=== PATIENT | male | born 1980 | race African-American/Black ===

== ENCOUNTER 2016-06-04 00:43 | Emergency (ER) | payer OTHER ==
[~2016-06-04] VITALS: Ht 190.5 cm; Wt 106.6 kg
[~2016-06-04 00:43] MED LIST: AMOXICILLIN500 MG PO; BACTRIM DS 8001 TAB PO; ECOTRIN81 MG PO
[2016-06-04 01:17] VITALS: BP 126/76
--- NOTE | 2016-06-04 01:26 | ED HAND/WRIST INJURY COMPLAINT ---
History of Present Illness General Chief Complaint: Hand or Wrist Injury Stated Complaint: LEFT QWRIST PAIN Source: patient, old records Exam Limitations: no limitations Vital Signs & Intake/Output Vital Signs & Intake/Output Vital Signs Date Time Temp Pulse Resp B/P B/P Pulse O2 O2 Flow FiO2 Mean Ox Delivery Rate 06/04 0117 98.6 89 18 126/76 98 Room Air Allergies Coded Allergies: MDX - No Known Drug Allergies - Nkd (NO KNOWN DRUG ALLERGIES - NKDA) (09/19/12) Reconcile Medications Amoxicillin 500 MG CAPSULE 1 TAB PO TID INFECTION Aspirin (Ecotrin) 81 MG ECT 1 TAB PO PRN HEADACHE (Reported) Sulfamethoxazole/Trimethopri (Bactrim Ds 800 MG-160 MG) 1 TAB TAB 1 TAB PO BID INFECTION Triage Note: PT TO ED C/O LEFT WRIST PAIN. STATES NOTICED BUMP ON LEFT WRIST A COUPLE OF WEEKS AGO. DENIES INJURY Triage Nurses Notes Reviewed? yes Occurred: x weeks Duration: week(s):, intermittent, waxing and waning Timing: recent history Injury Environment: home Severity: mild Severity Numbers: 2 Pain/Injury Location: Left: Wrist. Context: unknown Method of Injury: unknown No Modifying Factors: none Associated Symptoms: swelling HPI: 36-year-old male presents emergency room complaining of mild aching nonradiating pain to the left wrist has been going on for the past several weeks. States he' s had intermittent swelling over the wrist for a couple weeks. Denies known injury or trauma is not sought care until tonight for the symptoms. No numbness or tingling. No hand or finger pain he denies any form injury. Has not taken anything for symptoms or modifying factors or associated symptoms otherwise. (EARL NIELSEN) Past History Travel History Traveled to [place] past 21 day No Medical History Any Pertinent Medical History? none Neurological: NONE EENT: NONE Cardiovascular: NONE Respiratory: NONE Gastrointestinal: NONE Hepatic: NONE Renal: NONE Musculoskeletal: NONE Psychiatric: NONE Endocrine: NONE Blood Disorders: NONE Cancer(s): NONE Surgical History Surgical History: N Psychosocial History What is your primary language Uzbek Tobacco Use: Never used ETOH Use: denies use Illicit Drug Use: denies illicit drug use Family History Hx Contributory? No (EARL NIELSEN) Review of Systems Review of Systems Constitutional: Reports: see HPI. All Other Systems: Reviewed and Negative Comments Review of systems: See HPI, All other systems negative. Constitutional, no chills no fever, no malaise no weight loss HEENT: No visual changes no sore throat no congestion, no ear pain Cardiovascular: No chest pain , no palpitation Skin: no rashes, no change in skin Respiratory: No dyspnea no cough no sputum GI: No nausea no vomiting, no diarrhea, no bloating/constipation : No dysuria No hematuria, no frequency, no discharge Muscle skeletal: joint pain, no joint swelling, no back pain, no neck pain, Neurologic: No numbness no headache Psych: No stress Heme/endocrine: No bruising no bleeding Immunology: No lymphadenopathy (EARL NIELSEN) Physical Exam Physical Exam General Appearance: well developed/nourished, no apparent distress, alert Hand Left: normal inspection, normal range of motion Hand Right: normal inspection, normal range of motion Comments: Well-developed well-nourished patient in no apparent distress. HEENT: Atraumatic, extraocular motion intact Neck: Supple, FROM Back: FROM Cardiovascular: Regular rate and rhythms no murmurs rubs or gallops, Respiratory: \No respiratory distress. Patient speaking in full complete sentences. Breath sounds clear to auscultation bilaterally: NO W/R/R Shoulder: Atraumatic/Stable. FROM . Elbow: Atraumatic/stable. FROM. No laxity Upper arm/Forearm: Atraumatic. Nontender. No edema, 5 out of 5 hand shaper strength noted to bilateral upper extremities Hand/Wrist: Atraumatic/stable. Skin intact. Mild tenderness over the lateral dorsal aspect of the left wrist no ecchymosis, no swelling no obvious deformity no erythema. Sensation noted to the distal aspects of the fingers, FROM Pulses: Normal/equal radial pulses bilaterally. Brisk cap refill Lower Extremities: full range of motion Neuro: awake, alert, and oriented to person, place and time. There were no obvious focal neurologic abnormalities. Skin: Warm & dry;No appreciable rash on exposed skin Psych: Mood affect normal, normal memory normal judgment. (EARL NIELSEN) Progress Differential Diagnosis: cellulitis, compartment syndrome, dislocation, fracture, gout, sprain, tenosynovitis Plan of Care: Orders Procedure Date/time Status Durable Medical Equipment 06/04 0122 Active Patient's symptoms present for the past several weeks there's been no trauma or injury thumb brace was applied, advised rice close follow up with orthopedist primary care if symptoms persist I answered all his questions he feels comfortable with plan (EARL NIELSEN) Departure Departure Time of Disposition: 012 Disposition: HOME OR SELF CARE Condition: Stable Clinical Impression Primary Impression: Wrist tendonitis Referrals: PATIENT HAS NO PRIMARY CARE DR (PCP/Family) Additional Instructions: wear brace as discussed. tylenol or motrin as needed for pain, ice as needed. follow up with your pmd, return to the ER with any concerns Departure Forms: Customer Survey General Discharge Information (EARL NIELSEN) PA/[employer] Co-Sign Statement Statement: ED Attending supervision documentation- [] I saw and evaluated the patient. I have also reviewed all the pertinent lab results and diagnostic results. I agree with the findings and the plan of care as documented in the PA's/[employer]'s documentation. [X] I have reviewed the ED Record and agree with the PA's/[employer]'s documentation. [] Additions or exceptions (if any) to the PAs/[employer]'s note and plan are summarized below: [] (NAIN VELA,ANKUSH)
== END 2016-06-04 01:33 ==
LOC: ERH 00:43
DX: M77.8 Other enthesopathies, not elsewhere classified (principal)